=== PATIENT | female | born 1995 | race Caucasian/White ===

== ENCOUNTER → 2018-12-10 | Outpatient (CLI) | payer BC, OTHER ==
[~2018-12-10] MED LIST: ACNE MEDICATION; ALBU0.8322 IH; ALPR.25T PO; ALPR0.25 PO; ANXIETY MED; AZIT250T PO; CEFD300C PO; CEFD300C3 PO; CYCL10TA9 PO; DICY20TA33 PO; DOXY100C2 PO; GUAI600T86 PO; IBP800T PO; LEVO50TA6 PO; METH4TAB PO; PANT40TA2 PO; PRCD5U PO; PRD20T PO; SERT100T8 PO; SERT25TA PO; bcp PO
--- NOTE | 2018-12-10 11:34 | Diagnostic Imaging Report ---
PROCEDURE: US Thyroid. TECHNIQUE: Multiple real-time grayscale images were obtained of the thyroid in various projections. INDICATION: Thyromegaly. COMPARISON: None available. FINDINGS: The right lobe of the thyroid gland measures 4.8 x 1.3 x 1.5 cm. It maintains a homogeneous echotexture without discrete nodule. The left lobe of the thyroid gland measures 4.3 x 1.0 x 1.2 cm. It maintains a homogeneous echotexture. A 5 mm colloid cyst is present within the inferior pole of the left thyroid lobe. Isthmus is unremarkable. IMPRESSION: Small benign colloid cyst within the left thyroid lobe. Otherwise, unremarkable examination. Dictated by: Dictated on workstation # [id number]
== END ==
LOC: RAD 11:01
PROVIDERS: ATTEND Nurse Practitioner Family
DX: E04.1 Nontoxic single thyroid nodule (principal)
CPT/HCPCS: 76536

== ENCOUNTER → 2019-06-13 | Outpatient (CLI) | payer BC, OTHER ==
--- NOTE | 2019-06-13 11:37 | Diagnostic Imaging Report ---
PROCEDURE: CT head without contrast. TECHNIQUE: Multiple contiguous axial images were obtained through the brain without the use of intravenous contrast. Auto Exposure Controls were utilized during the CT exam to meet ALARA standards for radiation dose reduction. INDICATION: Headache. Comparison: None available. Findings: No hyperdense hemorrhage or space-occupying mass. No hydrocephalus or midline shift. The basilar cisterns are normal. Steward-white matter differentiation is well preserved. The mastoid air cells are clear. Paranasal sinuses are normal. No focal osseous abnormality of the calvarium. Impression: No acute intracranial process. Dictated by: Dictated on workstation # [id number]
== END ==
LOC: RAD 10:52
PROVIDERS: ATTEND Nurse Practitioner Family
DX: G44.309 Post-traumatic headache, unspecified, not intractable (principal); G47.19 Other hypersomnia; R11.0 Nausea
CPT/HCPCS: 70450

== ENCOUNTER 2020-01-10 02:38 | Emergency (ER) | payer BC, OTHER ==
[~2020-01-10] VITALS: Ht 167 cm; Wt 86.0 kg
--- NOTE | 2020-01-10 02:54 | ED GU-Female ---
General Stated Complaint: CAN'T URINATE Source: patient Exam Limitations: no limitations History of Present Illness Date Seen by Provider: Jan 10, 2020 Time Seen by Provider: 02:40 Initial Comments Patient presents to ER by private conveyance from home with chief complaint that earlier yesterday she started having difficulty urinating. She is able to only produce small amounts of urine at a time. She does have a history of chronic constipation and recently started on Linzess. No fever nausea chills cough shortness of breath. No history of urinary surgeries. She is on oral contraceptives and finished her period about 2 days ago. She is noticing some blood tinged urine. She also takes something for mood and Synthroid. She denies any recent onset of hypertension or edema. Allergies and Home Medications Allergies Coded Allergies: dextromethorphan HBr (Unverified Adverse Reaction, Mild, hives, 09/12/10) doxylamine succinate (Unverified Adverse Reaction, Mild, hives, 09/12/10) Home Medications Alprazolam 0.25 Mg Tablet, 0.25 MG PO Q4H, (Reported) Azithromycin 250 Mg Tablet, 250 MG PO UD TAKE 2 TABLETS TODAY, THEN TAKE 1 TABLET DAILY FOR 4 MORE DAYS Prescribed by: MIAN ALCANTARA on 02/26/15 1703 Dicyclomine HCl 20 Mg Tablet, 20 MG PO ACHS . Prescribed by: MIAN ALCANTARA on 09/14/15 1424 Guaifenesin 600 Mg Tab.er.12h, 600 MG PO BID Prescribed by: MIAN ALCANTARA on 02/26/15 1641 Levothyroxine Sodium 50 Mcg Tablet, 50 MCG PO DAILY, (Reported) Methylprednisolone 4 Mg Tab.ds.pk, 4 MG PO UD Prescribed by: MAIN ALCANTARA on 02/26/15 1701 Pantoprazole Sodium 40 Mg Tablet.dr, 40 MG PO DAILY Prescribed by: NOREEN SALEH on 11/17/14 1137 Sertraline HCl 100 Mg Tablet, 150 MG PO DAILY, (Reported) [bcp] , 1 TAB PO DAILY, (Reported) Patient Home Medication List Home Medication List Reviewed: Yes Review of Systems Review of Systems Constitutional: No chills, No diaphoresis EENTM: No ear discharge, No ear pain Respiratory: No cough, No short of breath Cardiovascular: No Hx of Intervention, No palpitations Gastrointestinal: No abdominal pain, No constipation, No diarrhea Genitourinary: see HPI, burning, dysuria, frequency, hematuria : No (oral contraceptives) Musculoskeletal: No back pain, No joint pain Past Lobjddj-Pciaac-Xrfwil Hx Patient Social History Alcohol Use: Denies Use Recreational Drug Use: No Smoking Status: Never a Smoker Recent Foreign Travel: No Contact w/Someone Who Travel: No Immunizations Up To Date Tetanus Booster (TDap): Less than 5yrs Date of Influenza Vaccine: Nov 28, 2013 Past Medical History Asthma Reproductive Disorders: No Anxiety Recent Skin Changes Adverse Reaction/Blood Tranf: No Family Medical History No Pertinent Family Hx Physical Exam Vital Signs Vital Signs - First Documented 01/10/20 02:45 Temp 35.7 Pulse 70 Resp 18 B/P (MAP) 133/88 (103) Pulse Ox 100 O2 Delivery Room Air Capillary Refill : Height, Weight, BMI Height: 5'6" Weight: 245lbs. oz. 111.949186qr; BMI Method:Stated General Appearance: WD/WN, no apparent distress HEENT: normal ENT inspection, pharynx normal Cardiovascular: normal peripheral pulses, regular rate, rhythm Respiratory: no respiratory distress, no accessory muscle use Gastrointestinal: normal bowel sounds, non tender Neurologic/Psychiatric: alert, normal mood/affect, oriented x 3 Skin: normal color, warm/dry Progress/Results/Core Measures Suspected Sepsis SIRS Temperature: Pulse: Respiratory Rate: Laboratory Tests 01/10/20 03:15: White Blood Count 10.6 Blood Pressure / Mean: Laboratory Tests 01/10/20 03:15: Creatinine 0.80, Platelet Count 262, Total Bilirubin 0.3 Results/Orders Lab Results Laboratory Tests Test 01/10/20 02:50 01/10/20 03:15 Range/Units Urine Color RED H Urine Clarity SL CLOUDY Urine pH 6.5 5-9 Urine Specific [place] 1.025 H 1.016-1.022 Urine Protein 2+ H NEGATIVE Urine Glucose (UA) NEGATIVE NEGATIVE Urine Ketones NEGATIVE NEGATIVE Urine Nitrite NEGATIVE NEGATIVE Urine Bilirubin NEGATIVE NEGATIVE Urine Urobilinogen 0.2 < = 1.0 MG/DL Urine Leukocyte Esterase 1+ H NEGATIVE Urine RBC (Auto) 3+ H NEGATIVE Urine RBC >100 H /HPF Urine WBC 0-2 /HPF Urine Squamous Epithelial Cells 0-2 /HPF Urine Crystals NONE /LPF Urine Bacteria TRACE /HPF Urine Casts NONE /LPF Urine Mucus NEGATIVE /LPF Urine Culture Indicated NO White Blood Count 10.6 4.3-11.0 10^3/uL Red Blood Count 4.48 3.80-5.11 10^6/uL Hemoglobin 13.3 11.5-16.0 g/dL Hematocrit 40 35-52 % Mean Corpuscular Volume 89 80-99 fL Mean Corpuscular Hemoglobin 30 25-34 pg Mean Corpuscular Hemoglobin Concent 34 32-36 g/dL Red Cell Distribution Width 11.8 10.0-14.5 % Platelet Count 262 130-400 10^3/uL Mean Platelet Volume 10.4 9.0-12.2 fL Immature Granulocyte % (Auto) 0 % Neutrophils (%) (Auto) 63 42-75 % Lymphocytes (%) (Auto) 28 12-44 % Monocytes (%) (Auto) 7 0-12 % Eosinophils (%) (Auto) 1 0-10 % Basophils (%) (Auto) 0 0-10 % Neutrophils # (Auto) 6.7 1.8-7.8 10^3/uL Lymphocytes # (Auto) 3.0 1.0-4.0 10^3/uL Monocytes # (Auto) 0.7 0.0-1.0 10^3/uL Eosinophils # (Auto) 0.1 0.0-0.3 10^3/uL Basophils # (Auto) 0.0 0.0-0.1 10^3/uL Immature Granulocyte # (Auto) 0.0 0.0-0.1 10^3/uL Erythrocyte Sedimentation Rate 4 0-20 MM/HR Urine Test NEGATIVE NEGATIVE Sodium Level 140 135-145 MMOL/L Potassium Level 3.9 3.6-5.0 MMOL/L Chloride Level 106 98-107 MMOL/L Carbon Dioxide Level 23 21-32 MMOL/L Anion Gap 11 5-14 MMOL/L Blood Urea Nitrogen 14 7-18 MG/DL Creatinine 0.80 0.60-1.30 MG/DL Estimat Glomerular Filtration Rate > 60 BUN/Creatinine Ratio 18 Glucose Level 98 70-105 MG/DL Calcium Level 8.5 8.5-10.1 MG/DL Corrected Calcium 8.6 8.5-10.1 MG/DL Total Bilirubin 0.3 0.1-1.0 MG/DL Aspartate Amino Transf (AST/SGOT) 16 5-34 U/L Alanine Aminotransferase (ALT/SGPT) 23 0-55 U/L Alkaline Phosphatase 46 40-136 U/L C-Reactive Protein High Sensitivity 0.28 0.00-0.50 MG/DL Total Protein 6.8 6.4-8.2 GM/DL Albumin 3.9 3.2-4.5 GM/DL My Orders Orders - FLORENCIO CONTEH Ua Culture If Indicated (01/10/20 02:45) Cbc With Automated Diff (01/10/20 03:13) Comprehensive Metabolic Panel (01/10/20 03:13) Hs C Reactive Protein (01/10/20 03:13) Erythrocyte Sedimentation Rate (01/10/20 03:13) Ed Iv/Invasive Line Start (01/10/20 03:13) Hcg,Qualitative Urine (01/10/20 03:14) Phenazopyridine Tablet (Pyridium Tablet) (01/10/20 03:30) Medications Given in ED Current Medications Medications Dose Ordered Sig/Piedad Route Start Time Stop Time Status Last Admin Dose Admin Phenazopyridine HCl 100 mg ONCE ONCE PO 01/10/20 03:30 01/10/20 03:32 DC 01/10/20 03:22 100 MG Vital Signs/I&O 01/10/20 02:45 Temp 35.7 Pulse 70 Resp 18 B/P (MAP) 133/88 (103) Pulse Ox 100 O2 Delivery Room Air Capillary Refill : Progress Note #1: Time: 02:55 Progress Note Patient was able to produce one 2 ounces of pink tinged urine. We will get a bladder scan. Plan to put a straight catheter and an decompress her if necessary. Suspect UTI. Progress Note #2: Time: 03:05 Progress Note The patient doesn't really seem to have infection on microscopy; just gross hematuria. There is no evidence of contamination on the urinalysis. Plan to draw lab to look at her kidney function and if it is poor we would consider ATN, Goodpasture's, lupus etc. We'll get a CRP and an ESR as well. As long as her labs look okay then we will treat her with antibiotics and have her follow-up outpatient with primary care. If however she has hypoalbuminemia, acutely elevated serum creatinine, dysmorphic RBCs then we would recommend she follow up with nephrology. Bedside postvoid residual no greater than 45 mL. She does not seem to have an obstructive urinary process. Departure Impression Primary Impression: UTI (urinary tract infection) Qualified Codes: N30.01 - Acute cystitis with hematuria Disposition: HOME, SELF-CARE Condition: Stable Departure-Patient Inst. Decision time for Depature: 03:55 Referrals: BASSAM JUARES DNP (PCP/Family) Primary Care Physician Patient Instructions: Urinary Tract Infection, Adult (DC) Add. Discharge Instructions: Drink lots of fluids. If you have painful urination you can use Pyridium for the first couple days. Tylenol 1000 mg every 8 hours as needed for discomfort. Keflex one capsule twice daily for the next week. Plan to follow up with your primary care doctor in the next 4-6 weeks to repeat urinalysis. If your symptoms are not improving after 3-4 days of antibiotics then follow-up sooner. Scripts Cephalexin (Keflex) 500 Mg Capsule 500 MG PO BID for 7 Days, #14 CAP 0 Refills Prov: FLORENCIO CONTEH 01/10/20 Copy Copies To 1: RUSS JUARES DO FLORENCIO CONTEH Jan 10, 2020 02:54
[2020-01-10 02:58] LABS: BILIRUBIN,URINE NEGATIVE (NEGATIVE); CLARITY,URINE SL CLOUDY; COLOR,URINE RED; GLUCOSE, URINE (UA) NEGATIVE (NEGATIVE); KETONES,URINE NEGATIVE (NEGATIVE); LEUKOCYTE ESTERASE ,URINE 1+ (NEGATIVE); NITRITE,URINE NEGATIVE (NEGATIVE); PH,URINE 6.5 (5-9); PROTEIN,URINE 2+ (NEGATIVE)
[2020-01-10 03:02] LABS: BACTERIA,URINE TRACE /HPF; RBC,URINE >100 /HPF; SQUAMOUS EPITHELIAL CELL,UR 0-2 /HPF; WBC,URINE 0-2 /HPF
[2020-01-10 03:25] LABS: BASOPHILS % (AUTO) 0 % (0-10); EOSINOPHILS # (AUTO) 0.1 10^3/uL (0.0-0.3); EOSINOPHILS % (AUTO) 1 % (0-10); HEMATOCRIT 40 % (35-52); HEMOGLOBIN 13.3 g/dL (11.5-16.0); LYMPHOCYTES % (AUTO) 28 % (12-44); MEAN CORPUSCULAR HEMOGLOBIN 30 pg (25-34); MEAN CORPUSCULAR HGB CONC 34 g/dL (32-36); MEAN CORPUSCULAR VOLUME 89 fL (80-99); MEAN PLATELET VOLUME 10.4 fL (9.0-12.2); MONOCYTES # (AUTO) 0.7 10^3/uL (0.0-1.0); MONOCYTES % (AUTO) 7 % (0-12); NEUTROPHILS # (AUTO) 6.7 10^3/uL (1.8-7.8); NEUTROPHILS % (AUTO) 63 % (42-75); PLATELET COUNT 262 10^3/uL (130-400); WHITE BLOOD COUNT 10.6 10^3/uL (4.3-11.0)
--- NOTE | 2020-01-10 03:25 | NUR ---
Pt arrives with onset of painful urination and retention with onset yesterday morning. Pt has a hx of IBS with constipation and was recently started on Linzenss for constipation. Pt was able to give a approx 50ml UA sample of light pink urine; sample sent to lab.
[2020-01-10] MEDS ORDERED: PHENAZOPYRIDINE 100 MG (PYRIDIUM) TABLET PO ONE (03:30)
[2020-01-10 03:37] LABS: ALBUMIN 3.9 GM/DL (3.2-4.5); CHLORIDE 106 MMOL/L (98-107); POTASSIUM 3.9 MMOL/L (3.6-5.0); SODIUM 140 MMOL/L (135-145)
[2020-01-10 03:38] LABS: CALCIUM 8.5 MG/DL (8.5-10.1)
[2020-01-10 03:39] LABS: GLUCOSE 98 MG/DL (70-105)
[2020-01-10 03:40] LABS: TOTAL PROTEIN 6.8 GM/DL (6.4-8.2)
[2020-01-10 03:41] LABS: BILIRUBIN,TOTAL 0.3 MG/DL (0.1-1.0); CARBON DIOXIDE 23 MMOL/L (21-32)
[2020-01-10 03:43] LABS: ALKALINE PHOSPHATASE 46 U/L (40-136); GFR ESTIMATED > 60
[2020-01-10 03:44] LABS: BUN/CREATININE RATIO 18
[2020-01-10 03:46] LABS: ALANINE AMINOTRANSFERASE 23 U/L (0-55)
[2020-01-10 03:56] LABS: ERYTHROCYTE SEDIMENTATION RATE 4 MM/HR (0-20)
[2020-01-10] MEDS ORDERED: CEPH-507 PO ×2 (04:00→04:26)
[2020-01-10 04:12] VITALS: BP 137/96
== END 2020-01-10 04:14 | disposition home or self-care (01) ==
LOC: EDUNIT# 02:38 → ER 02:42
DX: N39.0 Urinary tract infection, site not specified (principal); F41.9 Anxiety disorder, unspecified; J45.909 Unspecified asthma, uncomplicated; Z88.8 Allergy status to other drugs, medicaments and biological substances; Z79.52 Long term (current) use of systemic steroids
CPT/HCPCS: 36415; 80053; 81000; 84703; 85025; 85652; 86141

== ENCOUNTER → 2020-03-30 | Outpatient (CLI) | payer BC ==
[~2020-03-30] MED LIST changes: +CEPH-507 PO
--- NOTE | 2020-03-30 10:53 | Diagnostic Imaging Report ---
PROCEDURE: Pelvic comp/transvaginal sonogram. TECHNIQUE: Complete transabdominal and transvaginal pelvic ultrasound was performed. In addition, limited pelvic Doppler was performed. INDICATION: Pelvic pain. FINDINGS: Uterus is anteverted measuring 7.5 x 3.3 x 4.1 cm. Endometrium is 3 mm in thickness. No myometrial mass is detected. Right ovary measures 2.2 x 1.0 x 1.5 cm and the left ovary measures 1.4 x 0.8 x 1.0 cm. There is blood flow to both ovaries. No adnexal mass or free fluid is detected. There appears to be a small cervical nabothian cyst. IMPRESSION: Unremarkable transabdominal and transvaginal pelvic ultrasound. Dictated by: Dictated on workstation # [id number]
== END ==
LOC: RAD 09:43
PROVIDERS: ATTEND Nurse Practitioner
DX: R10.2 Pelvic and perineal pain (principal)
CPT/HCPCS: 76830; 76856

== ENCOUNTER → 2020-07-12 | Outpatient (CLI) | payer BC ==
[~2020-07-12] VITALS: Ht 167.7 cm; Wt 90.0 kg
[~2020-07-12] MED LIST changes: +CITA40TA19 PO; +SERT-414 PO; -SERT100T8 PO
== END | disposition home or self-care (01) ==
LOC: PREOP 06:39
PROVIDERS: ATTEND Surgery
DX: Z01.818 Encounter for other preprocedural examination (principal)

== ENCOUNTER 2020-07-18 09:26 | Day surgery (SDC) | payer BC ==
[~2020-07-18] VITALS: Ht 167.7 cm; Wt 90.0 kg
[2020-07-18] VITALS (8 sets, daily range): BP systolic 118–135; BP diastolic 63–91
[2020-07-18] MEDS ORDERED: LACTATED RINGERS 1,000 ML IV ONE (09:33)
[2020-07-18] MEDS ORDERED: MIDAZOLAM 2 MG/2 ML (VERSED) VIAL ONE (09:41)
[2020-07-18] MEDS ORDERED: PROPOFOL INJECTION 50 ML IV ONE ×2 (09:41→10:21)
[2020-07-18] MEDS ORDERED: LACTATED RINGERS 1,000 ML IV STA (09:48)
[2020-07-18] MEDS ORDERED: HURRICAINE EXT TUBE (BENZOCAINE) XX PRN (10:00)
[2020-07-18] MEDS ORDERED: LIDOCAINE JELLY 2% 6 ML SYRINGE MM PRN (10:00)
--- NOTE | 2020-07-18 10:14 | Progress Note-Pre Operative ---
Pre-Operative Progress Note H&P Reviewed The H&P was reviewed, patient examined and no changes noted. Date Seen by Provider: July 18, 2020 Time Seen by Provider: : Date H&P Reviewed: July 18, 2020 Time H&P Reviewed: : Pre-Operative Diagnosis: GERD, red blood per rectum, dark tarry stools NOREEN SALEH MD July 18, 2020 10:14
[2020-07-18] MEDS ORDERED: ACETAMINOPHEN 325 MG TABLET PO PRN (10:15)
[2020-07-18] MEDS ORDERED: morphine INJ 10 MG/ML 1ML (SYR OR VIAL) IVP PRN ×2 (10:15)
[2020-07-18] MEDS ORDERED: ONDANSETRON 4 MG/2 ML (SDV) Z0FRAN IVP PRN (10:15)
[2020-07-18] MEDS ORDERED: HYDROcodone/APAP 5 MG/325 MG (LORTAB) TAB PO PRN (10:15)
[2020-07-18] MEDS ORDERED: LIDOCAINE JELLY 2% 6 ML SYRINGE ONE (10:15)
--- NOTE | 2020-07-18 10:17 | Discharge Inst-Surgical ---
D/C Lap Instructions-KIDO New, Converted, or Re-Newed RX: RX on Chart Follow Up Appt in 2 weeks Activity as tolerated High Fiber Diet 25g or more per day Avoid Alcohol, Caffeine, Spicy Hardy and Acid foods. Drink 64 fluid oz or more of fluids per day. Symptoms to Report: Fever over 101 degree F, Nausea/Vomiting If any problems/questions: Contact your physician or go to Emergency Room NOREEN SALEH MD July 18, 2020 10:17
--- NOTE | 2020-07-18 11:22 | Progress Note-Post Operative ---
Post-Operative Progess Note Surgeon (s)/Cutting Supervisor (s) Surgeon NOREEN SALEH MD Cutting Supervisor: none Pre-Operative Diagnosis GERD, red blood per rectum, dark tarry stools Post-Operative Diagnosis reflux esophagitis(stage 2), moderate type 2 HH(3cm), moderate gastritis. Procedure & Operative Findings Date of Procedure 07/18/20 Procedure Performed/Findings EGD with bx. colonoscopy with bx. Anesthesia Type mac Estimated Blood Loss Estimated blood loss (mL): minimal Specimens/Packing Specimens Removed ge jxn, antrum cecum, asc/transverse/desc, rectum NOREEN SALEH MD July 18, 2020 11:22
--- NOTE | 2020-07-18 12:16 | Anesthesia-General Post-Op ---
MAC Patient Condition Mental Status/LOC: Same as Preop Cardiovascular: Satisfactory Nausea/Vomiting: Absent Respiratory: Satisfactory Pain: Controlled Complications: Absent Post Op Complications Complications None Follow Up Care/Instructions Patient Instructions None needed. Anesthesiology Discharge Order Discharge Order Patient is doing well, no complaints, stable vital signs, no apparent adverse anesthesia problems. No complications reported per nursing. JOSE VÁSQUEZ CRNA July 18, 2020 12:16
--- NOTE | 2020-07-18 16:31 | OPERATIVE REPORT ---
DATE OF SERVICE: 07/18/2020 ATTENDING PRIMARY CARE PHYSICIAN: Dr. Shahab Brown. PREOPERATIVE DIAGNOSES: Gastroesophageal reflux disease, red blood per rectum as well as dark tarry stools. POSTOPERATIVE DIAGNOSES: Reflux esophagitis stage II, moderate size hiatal hernia approximately 3 cm in size, moderate gastritis, chronic stage II external and internal hemorrhoids. Remainder of the rectum and colon were normal. PROCEDURE: EGD with biopsy, colonoscopy with biopsy. SURGEON: Noreen Saleh MD. ANESTHESIA: Monitored anesthesia care. ESTIMATED BLOOD LOSS: Minimal. FINDINGS: Reflux esophagitis stage II, moderate size hiatal hernia approximately 3 cm in size, moderate gastritis, chronic stage II external and internal hemorrhoids. Remainder of the rectum and colon were normal. DISPOSITION: The patient tolerated the procedure well. INDICATIONS: The patient is a 25-year-old female who has a 5-month history of gastroesophageal reflux disease, which has been worsening over time. She reports an epigastric dull ache; however, also be sharp in nature as well and she also had some issues with some nausea as well. She does not have an identifiable inciting food. She has also had episodes of bright red blood per rectum as well as dark tarry stools. She also reports that she has had some mucousy stools as well. She does report that she does have two paternal aunts with a history of Crohn's disease. She does not report any family history of any colon cancer. DESCRIPTION OF PROCEDURE: The patient was brought to the endoscopy suite, laid in the left lateral decubitus position. After adequate IV pain and sedative medications and monitored anesthesia care, the mouthpiece was applied. The endoscope was placed in the mouth, visualizing the pharynx and hypopharyngeal region. Vocal cords, epiglottis and vallecula identified and appeared to be normal. The endoscope was then gently intubated into the esophageal opening and esophagus insufflated. The endoscope was then advanced through the first, second and third portion of esophagus at the level of the GE junction, reflux esophagitis stage II identified. The endoscope was then advanced in the stomach. The endoscope retroflexed, visualizing a moderate size hiatal hernia. This appeared to be a type 2 paraesophageal hernia. This was approximately 3 cm in size. There was a moderate gastritis. No formal ulcerations, polyps, or any neoplasms. A biopsy was taken of the antrum to rule out H. pylori with visualization of good hemostasis. The endoscope was then advanced to the pylorus and the first and second portion of the duodenum, which appeared normal with no distal obstructions. The endoscope was then slowly withdrawn while taking a second look and suctioning of residual air with no additional findings. A digital rectal examination was then performed, which revealed mild chronic stage II external and internal hemorrhoids with no active inflammation or any bleeding. There were no palpable masses and normal suture tone was felt. The endoscope was then intubated to the anus and rectum gently insufflated. The endoscope was then advanced through the valves of Kang of the rectum with no polyps or any neoplasms identified. We then proceeded through the sigmoid colon where no diverticulosis identified. The endoscope was then advanced to the remainder of the descending, transverse and ascending colon to the cecum. These segments were normal. There were no mucosal inflammatory changes to indicate any active colitis. We then proceeded with random biopsies of the cecum, ascending colon, transverse colon, descending colon as well as the rectum using biopsy forceps with visualization of good hemostasis. The patient tolerated the procedure well. We will await the biopsy results; however, we will also start her on a higher dose of Protonix at 40 mg daily as well as Carafate 1 gram q.i.d. for the next two weeks. We will also continue to monitor her progress and if she continues to proceed with maximum medical therapy and she continues to have symptoms of reflux and regurgitation as well as pain, she may be a candidate for antireflux procedure; however, before this, we would proceed with an esophageal manometry study to rule out dysmotility disorder. Job ID: [id number] DocumentID: [id number] Dictated Date: 07/18/2020 11:21:58 Manager Care Date: 07/18/2020 16:30:04 Dictated By: NOREEN SALEH MD
== END 2020-07-18 12:20 | disposition home or self-care (01) ==
LOC: ENDO 09:26
PROVIDERS: ATTEND Surgery
DX: K21.00 Gastro-esophageal reflux disease with esophagitis, without bleeding (principal); K29.50 Unspecified chronic gastritis without bleeding; K63.89 Other specified diseases of intestine; K92.1 Melena; K44.9 Diaphragmatic hernia without obstruction or gangrene; K64.1 Second degree hemorrhoids; E03.9 Hypothyroidism, unspecified; K64.8 Other hemorrhoids; G43.909 Migraine, unspecified, not intractable, without status migrainosus; F32.9 Major depressive disorder, single episode, unspecified; F41.9 Anxiety disorder, unspecified; Z79.899 Other long term (current) drug therapy; Z79.890 Hormone replacement therapy; Z90.89 Acquired absence of other organs; Z83.79 Family history of other diseases of the digestive system
CPT/HCPCS: 84703; 88305

== ENCOUNTER → 2021-08-22 | Outpatient (CLI) | payer BC ==
[~2021-08-22] MED LIST changes: +CYCL10TA25 PO; -CYCL10TA9 PO
--- NOTE | 2021-08-22 13:59 | Diagnostic Imaging Report ---
PROCEDURE: Pelvic comp/transvaginal sonogram. TECHNIQUE: Complete transabdominal and transvaginal pelvic ultrasound was performed. In addition, limited pelvic Doppler was performed. INDICATION: Pelvic pain. Uterus is anteverted measuring 6.4 x 3.0 x 4.0 cm. Endometrium is 5 mm in thickness. There is trace fluid within the endometrial canal. No myometrial mass is detected. Right ovary measures 2.6 x 1.9 x 2.1 cm and the left ovary measures 2.9 x 1.8 x 2.3 cm. Right ovary does contain a septated cyst approximately 18 mm in size. Left ovary contains a simple 18 mm cyst. There is blood flow to both ovaries. No free fluid is seen. IMPRESSION: Bilateral ovarian cysts, cyst on the right appears to be septated. The study is otherwise unremarkable. Dictated by: Dictated on workstation # [id number]
== END ==
LOC: RAD 11:36
PROVIDERS: ATTEND Surgery
DX: N83.202 Unspecified ovarian cyst, left side (principal); N83.201 Unspecified ovarian cyst, right side
CPT/HCPCS: 76830; 76856